=== PATIENT | male | born 1995 | race Caucasian/White ===

== ENCOUNTER 2024-09-07 04:11 | Emergency (ER) | payer BC, SELFPAY ==
[2024-09-07 04:12] VITALS: BP 137/85; PULSE 83; RESP 16; TEMP 36.5; O2SAT 97; BMI 29.5
--- NOTE | 2024-09-07 04:27 | ED.GENADULT ---
HPI - General Adult General Chief complaint: General Medical Stated complaint: allergic reaaction Time Seen by Provider: 09/07/24 04:21 Source: patient Mode of arrival: ambulatory Limitations: no limitations History of Present Illness ED Provider: Dr. Adrianna Cesar HPI narrative: Patient comes to the emergency room complaining of upper lip swelling. Patient states that he does not know if this is an allergic reaction or infection. Patient states that yesterday, 24+ hours started out as a pimple under his nose, tried squeezing in an put Neosporin. Patient states that the pimple under his nose did not change much. However, the lip became more swollen. Patient states it hurts quite a bit. Denies any trouble breathing, no hives, no itchiness. To patient's knowledge, he has no known allergies. Related Data Previous Rx's ?Medication ?Instructions ?Recorded cephalexin 500 mg capsule 500 mg PO BID #14 caps 09/07/24 famotidine 40 mg tablet (Pepcid) 40 mg PO DAILY #4 tabs 09/07/24 prednisone 50 mg tablet 50 mg PO DAILY #4 tabs 09/07/24 Allergies Allergy/AdvReac Type Severity Reaction Status Date / Time No Known Allergies Allergy Verified 09/07/24 04:15 Review of Systems Review of Systems: Constitutional : No Weight loss, No Fever, No Chills, No Night Sweats, No Fatigue, No Malaise ENT/Mouth : Complaining of swollen upper lip on the left side, No Hearing loss, No Ear Pain, No Nasal Congestion, No Sinus Pain, No Hoarseness, No sore throat, No Rhinorrhea, No Swallowing Difficulty Eyes: No Eye Pain, No Swelling, No Redness, No Foreign Body, No Discharge, No Vision Changes Cardiovascular : No Chest Pain, No SOB, No Dyspnea on Exertion, No Orthopnea, No Edema, No Palpitations Respiratory : No Cough, No Sputum, No Wheezing, No Smoke Exposure, No Dyspnea Gastrointestinal : No Nausea, No Vomiting, No Diarrhea, No Constipation, No abdominal Pain, No Hematochezia, No Melena Genitourinary : no irregular bleeding, No Dysuria, No Urinary Frequency, No Hematuria, No Urinary Incontinence, No Urgency, No Flank Pain, No Urinary Flow Changes, No Hesitancy Musculoskeletal : No joint pain, No Myalgias, No Joint Swelling Skin : No Skin Lesions, No rash Neuro : No Weakness, No Numbness, No Paresthesias, No Loss of Consciousness, No Dizziness, No Headache Psych : No Anxiety/Panic, No Depression, No SI/HI/AH/VH, No Social Issues, Heme/Lymph: No Bruising, No Bleeding,No Lymphadenopathy Endocrine : No Polyuria, No Polydipsia, No Temperature Intolerance [facility] Social History Social History Advance Directives: No Advance Directives Information Provided: Yes Do you have a plan to hurt others: No Plan Physical Exam ED Vital Signs: Vital Signs - 24 hr 09/07/24 04:12 Temperature 97.7 F Pulse Rate 83 Respiratory Rate 16 Blood Pressure 137/85 Pulse Oximetry 97 Oxygen Delivery Method Room Air BMI result Body Mass Index 29.5 Const Other: Appearance: Alert. Oriented X3. No acute distress. Eyes: Pupils equal, round and reactive to light. ENT: Pharynx normal. Patient's upper lip on the left side is swollen. Tender to palpation, no signs of cellulitis. There is a pimple under the left nostril, small amount of dried discharge, possible impetigo Neck: Normal inspection. Neck supple. No lymph nodes noted. No crepitus CVS: Normal heart rate and rhythm. Pulses normal. Normal S1 and S2 Respiratory: No respiratory distress. Breath sounds normal. No Wheezing. No rales Abdomen: Soft and nontender. No rigidity. No distention. Skin: Skin warm and dry. Normal skin color. Normal skin turgor. Extremities: No lower extremity edema. No Lacerations. No Rash Neuro: Oriented X 3. No motor deficit. No sensory deficit. Moving all extremities. No slurred speech. CN 2 through 12 grossly intact Psych: calm, cooperative, normal affect Course Course Course Narrative: Patient receiving IV fluids, IV Solu-Medrol, Pepcid and Benadryl. Medications Administered Discontinued Medications Generic Name Dose Route Start Last Admin Trade Name Freq PRN Reason Stop Dose Admin Diphenhydramine HCl 50 mg 09/07/24 04:26 09/07/24 04:42 Diphenhydramine Hcl 50 Mg/Ml Vial IVPUSH 09/07/24 04:27 50 mg ONCE ONE Administration Famotidine 20 mg 09/07/24 04:26 09/07/24 04:44 Famotidine/Pf 20 Mg/2 Ml Vial IVPUSH 09/07/24 04:27 20 mg ONCE ONE Administration Sodium Chloride 500 mls @ 999 mls/hr 09/07/24 04:26 09/07/24 05:26 Ns IVCONT 09/07/24 04:56 Infused .Q31M ONE Infusion Ketorolac Tromethamine 30 mg 09/07/24 04:59 09/07/24 05:13 Ketorolac Tromethamine 30 Mg/Ml Vial IVPUSH 09/07/24 05:00 30 mg ONCE ONE Administration Methylprednisolone Sodium Succinate 125 mg 09/07/24 04:26 09/07/24 04:40 Methylprednisolone Sod Succ 125 Mg Vial IVPUSH 09/07/24 04:27 125 mg ONCE ONE Administration Medical Decision Making Medical Decision Making [facility] Narrative: On physical exam, patient has mild impetigo under the left nostril where the pimple use. However, it does not quite extend into the lip. But the upper lip on the left side is swollen Patient empirically being treated with IV medications for allergic reaction Patient will also need antibiotics After the above-mentioned treatment, the swelling in the lifted goes slightly down. Patient's airways patent, no airway compromise. Overall patient states that he does feel a bit better but his lips still hurting. Differential Diagnosis Differential Diagnoses: The differential diagnosis associated with the presentation includes (Angioedema, allergic reaction, cellulitis) Admission/Observation Consideration of admission/observation: Escalation of care including admission/observation considered (Given patient's lip swelling, observation was considered) Critical Care Time Critical Care Time Critical Care Time: Yes Total Critical Care Time: 35 Attestation: I have personally provided critical care time. Time includes review of lab data, radiology results, discussion with consultants, and monitoring for potential decompensation. Intervention performed as documented. Discharge Plan Discharge Clinical Impression: Cellulitis, Lip swelling Patient Disposition: Home, Self-Care Instructions: Cellulitis (ED), Allergies (ED) Additional Instructions: Please follow-up with your primary care physician tomorrow. If you have any worsening or new symptoms, please return to the emergency room or call 911 Prescriptions: New prednisone 50 mg tablet 50 mg PO DAILY Qty: 4 0RF famotidine [Pepcid] 40 mg tablet 40 mg PO DAILY Qty: 4 0RF cephalexin 500 mg capsule 500 mg PO BID Qty: 14 0RF Stand Alone Forms: Work/School Release Print Language: Libyan
[2024-09-07] MEDS: diphenhydrAMINE HCL 50 MG/ML VIAL IVPUSH (04:42)
[2024-09-07] MEDS: Famotidine/PF 20 MG/2 ML VIAL IVPUSH (04:44)
[2024-09-07] MEDS: 0.9 % Sodium Chloride 500 ML 999 ML IVCONT (04:45)
[2024-09-07] MEDS: Ketorolac Tromethamine 30 MG/ML VIAL IVPUSH (05:13)
[2024-09-07 07:20] VITALS: BP 136/81; PULSE 62; RESP 16; TEMP 36.7; O2SAT 97
== END 2024-09-07 07:21 | disposition home or self-care (01) ==
PROVIDERS: Emergency Provider Emergency Medicine
DX: K13.0 Diseases of lips (principal)
CPT/HCPCS: 96361; 96374; 96375; 99283; 99284; J1200; J1308; J1885; J2919